=== PATIENT | male | born 1985 | race Caucasian/White ===

== ENCOUNTER 2024-04-30 11:31 | Emergency (ER) | payer BC ==
[2024-04-30] MEDS ORDERED: Boostrix 0.5 ML (Tdap) VIAL (>/=7 yrs of age) ONE (12:17)
[2024-04-30] MEDS ORDERED: Bacitracin 1 PK ONE (12:17)
== END 2024-04-30 13:26 | disposition home or self-care (01) ==
LOC: NAV ERS 11:31
DX: S81.812A Laceration without foreign body, left lower leg, initial encounter (principal); W26.0XXA Contact with knife, initial encounter
CPT/HCPCS: 12001; 90471; 90715